=== PATIENT | female | born 1950 | race Caucasian/White ===

== ENCOUNTER 2017-06-13 21:03 | Emergency (ER) | payer OTHER, MEDICAID ==
[~2017-06-13] VITALS: Ht 154.9 cm; Wt 79.8 kg
[~2017-06-13 21:03] MED LIST: ASPI-867 PO; COR6.25 PO; GABA-533 PO; ONDA4TAB5 PO; PRO40 PO; PROC10TA PO
[2017-06-13 21:04] VITALS: BP_SYST 143
[2017-06-13] MEDS ORDERED: KETOROLAC TROMETHAMINE 60 MG/2 ML VIAL IM ONE (21:30)
[2017-06-13 22:15] VITALS: BP_SYST 146
== END 2017-06-13 22:15 | disposition home or self-care (01) ==
LOC: SED 21:03
DX: S90.31XA Contusion of right foot, initial encounter (principal); J44.9 Chronic obstructive pulmonary disease, unspecified; K21.9 Gastro-esophageal reflux disease without esophagitis; Z88.5 Allergy status to narcotic agent; Z88.8 Allergy status to other drugs, medicaments and biological substances; W20.8XXA Other cause of strike by thrown, projected or falling object, initial encounter; Y93.89 Activity, other specified; Y92.89 Other specified places as the place of occurrence of the external cause; Y99.8 Other external cause status
CPT/HCPCS: 73630; 96372; 99284; J1885